=== PATIENT | female | born 2000 | race Caucasian/White ===

== ENCOUNTER 2022-12-10 14:20 | Outpatient (CLI) | payer OTHER ==
[2022-12-10 15:07] VITALS: BP 122/70
--- NOTE | 2022-12-10 15:07 | SLEEP CARE CONSULTATION ---
Information from patient questionnaire entered by Eda Chung. I have reviewed and concur with the information entered by Eda Chung. This document represents the service I personally performed and the decisions made by me, Neha Gutierrez ARNP. History of Present Illness Service Date and Time: 12/10/2022 1420 Reason for Visit: New patient Chief Complaint: reports: Unrefreshed sleep, Snoring, Observed pauses in breathing Date of Onset: MORE THAN SIX MONTHS Usual bedtime: 9-10PM Time it takes to fall asleep: 20-30MIN SOMETIMES ONE HR Snores at night: Yes (according to brother) Observed to quit breathing while asleep: Yes Number of times waking at night: 0-1 times a night Reasons for waking at night: reports: Gasping for air (once about 4-5 months ago), Other (unknown reasons). denies: Choking, Snoring Toss, Turn, or Twitch while sleeping: Yes Recalls having dreams: Yes (sometimes, does not dream all that much) Usually gets out of bed at: [id number] Feels refreshed in the morning: No Morning headache: No Sleepy or fatigued during the day: Yes (tirso in the morning) Ever fallen asleep while driving: No Takes day naps: No Dreams during day naps: No Prior sleep studies: No Additional HPI information: I had the pleasure of seeing MEGHNA DODSON today regarding the possibility of her having a sleep disorder. Her current complaints are observed pauses in sleep, snoring and unrefreshed sleep. She states that she has been told by roommates that she is stopping breathing in her sleep. Her brother tells her that she snores "a little bit". She states she does not wake up feeling rested usually. - Parasomnia Symptoms Ever been unable to move upon waking from sleep: No Walks in sleep: No Talks in sleep: Yes Ever acted out dreams in sleep: No Ever felt weak in the knees when startled or emotional: No Bothered by creepy, crawly, restless sensations in legs: No Problems with memory or concentration: No Subjective Initial [place] Sleepiness Scale score: 4 (12/10/22) Past Medical History Past Medical History: reports: Other (no significant medical history) Social History The patient's occupation is a AM. Patient is Single and lives in . Have you smoked in the past 12 months: No Alcohol use: No Caffeine use: Yes Caffeine amount and frequency: ONCE A DAY Family History Family history of sleep disordered breathing: Yes Family Hx Sleep Apnea: Father: Snoring, Sleep apnea - Treated Allergies and Home Medications Known drug allergies: No Drug allergies reviewed: Yes Home medication list reviewed: Yes (no daily medications; Aleve, prn) Review of Systems Weight gain over past 5 years: 10-15 Cardiovascular: denies: high blood pressure Gastrointestinal: denies: heartburn, difficulty swallowing Neurological: denies: headaches Psychiatric: denies: Attention Deficit Hyperactivity, anxiety, depression Ear/Nose/Throat: denies: tonsillectomy, wisdom teeth removed Endocrine: denies: thyroid disease Immunologic: reports: other (getting allergy tested this week) Physical Exam Vital signs obtained and entered by: EDA Talbert MA Blood Pressure: 122/70 (LEFT ARM) Cuff size: regular Heart Rate: 85 O2 Saturation: 96 Height: 5 ft 1 in Weight: 125 lb 6.4 oz Body Mass Index: 23.7 BMI Classification: Normal Neck circumference: 12.25 Mouth and throat: narrow oropharynx Soft palate: long Hard palate: normal Uvula: normal Uvula visualization: 50% Mallampati Class II Tongue: enlarged in size with teeth skelton on lateral edges Tonsils: small Neck: normal w/o lymphadenopathy or thyromegaly Heart: regular rate and rhythm Lungs: clear bilaterally Impression and Plan 1. Suspected Obstructive Sleep Apnea-Hypopnea Syndrome, as suggested by a history of irregular snoring, observed cessation of breath while asleep and unrefreshed sleep. Narrow oropharynx and obesity are common predisposing factors for obstructive sleep apnea-hypopnea syndrome. I recommend proceeding to polysomnography to confirm the diagnosis and to assess severity. If the patient has significant sleep disordered breathing, a manual CPAP titration study will also be performed to find the optimal treatment pressure. I informed the patient of what the sleep studies involve and after some discussion, obtained agreement to proceed. The pathophysiology of obstructive sleep apnea-hypopnea syndrome was discussed with the patient and health risks of cardiovascular and cerebrovascular disease if not treated. Risks of drowsy driving discussed in detail and patient advised to avoid long distance driving and to plant puller at the first sign of drowsiness. Patient agreed to plan. * Schedule polysomnography * Avoid long distance driving or driving when feeling sleepy. * Avoid alcohol, sedative and muscle relaxant around bedtime. * Attempt to lose weight. * Review instructions provided by trained office staff on how to prepare for the sleep study. * Return for follow-up after sleep study completed. Counseling Topics: Weight control Visit Type: In Office Time Spent with Patient (minutes): 30 Provider Statement: I spent 100% of the Face to Face Visit with the patient with greater than 50% spent counseling the patient and coordination of care.
== END 2022-12-10 14:21 | disposition home or self-care (01) ==
LOC: SC 14:20
PROVIDERS: ATTEND Nurse Practitioner Family
DX: R06.83 Snoring (principal); R06.81 Apnea, not elsewhere classified; G47.8 Other sleep disorders
CPT/HCPCS: 99203; 99212

== ENCOUNTER 2022-12-22 17:58 | Emergency (ER) | payer OTHER ==
--- NOTE | 2022-12-22 20:10 | ED Physician Documentation ---
History of Present Illness - Stated complaint Stated Complaint: CUT RT FINGER - Chief complaint Chief Complaint: Ext Problem - Additonal information Additional information: 22-year-old female presents emergency department for evaluation of acute right thumb laceration sustained when attempting to cut a watermelon using a dull knife. She is left-hand dominant. She has a 1.5 cm laceration on the ulnar side of the right thumb. Bleeding controlled with pressure. Reports up-to-date tetanus. Review of Systems Constitutional: reports: Reviewed and negative Cardiac: reports: Reviewed and negative Respiratory: reports: Reviewed and negative Skin: reports: Laceration (s) PD PAST MEDICAL HISTORY - Present Medications Home Medications: Ambulatory Orders Medication Instructions Recorded Confirmed Naproxen Sodium [Aleve] See Rx Instructions .ROUTE .COMPLEX 12/10/22 12/10/22 - Allergies Allergies/Adverse Reactions: Allergies Allergy/AdvReac Type Severity Reaction Status Date / Time No Known Drug Allergies Allergy Verified 12/10/22 14:35 PD ED PE EXPANDED - Extremities Extremities: Right finger(s) (1.5 cm laceration distal tip right thumb ulnar side. No active bleeding. No nailbed involvement. Neurovascular intact. Preserved flexion extension at DIP joint) Results - Vitals Vitals: Vital Signs - 24 hr 12/22/22 18:32 Temperature 36.5 C Heart Rate 66 Respiratory 18 Rate Blood Pressure 114/77 O2 Saturation 100 Oxygen O2 Source Room air Procedures - Laceration (location) Right thumb Length in cm: 1.5 Wound type: Linear, Into subcut fat Neurovascular status: Sensory intact, Motor intact Tendon involvement: Tendon intact Wound preparation: Chlorhexadine, Irrigated copiously NS Skin layer closure: Dermabond Other: Patient tolerated well, Tetanus UTD PD Medical Decision Making - ED course Complexity details: reviewed results, re-evaluated patient, considered differential, d/w patient ED course: 22-year-old female presents to the emergency department for evaluation of acute right thumb laceration sustained when cutting a watermelon. She is left-hand dominant. This was a simple laceration that did not involve the nailbed. Easily closed with Dermabond. Tetanus is up-to-date. The routine care and usual return precautions for concerns of infection were discussed. Departure - Departure Disposition: 01 Home, Self Care Clinical Impression: Laceration of right thumb Qualifiers: Encounter type: initial encounter Damage to nail status: without damage Foreign body presence: without foreign body Qualified Code(s): S61.011A - Laceration without foreign body of right thumb without damage to nail, initial encounter Condition: Stable Record reviewed to determine appropriate education?: Yes Instructions: ED Laceration Ext Skin Glue Comments: We closed the laceration on your right thumb Using Dermabond or glue. No special treatment is necessary for this. Avoid using antibiotic ointments as it will cause the glue to wear away. I would expect that this simply wears away over the next several days up to a week. Return to the ER if you have any concerns of infection, fevers, redness milky drainage or severe pain. [id number] Tylenol and ibuprofen should be sufficient for your pain.
[2022-12-22 20:14] VITALS: BP 123/86
== END 2022-12-22 20:14 | disposition home or self-care (01) ==
LOC: ED 17:58
DX: S61.011A Laceration without foreign body of right thumb without damage to nail, initial encounter (principal); W26.0XXA Contact with knife, initial encounter; Y93.G1 Activity, food preparation and clean up
CPT/HCPCS: 12001; 99281

== ENCOUNTER 2022-12-30 19:34 | Outpatient (CLI) | payer OTHER | END 2022-12-30 19:35 | disposition home or self-care (01) | LOC: SC 19:34 | PROVIDERS: ATTEND Nurse Practitioner Family | DX: R06.83 Snoring (principal); R53.83 Other fatigue; G47.8 Other sleep disorders | CPT/HCPCS: 95810 ==

== ENCOUNTER 2023-01-10 14:49 | Outpatient (CLI) | payer OTHER ==
[2023-01-10 15:08] VITALS: BP 114/76
--- NOTE | 2023-01-10 15:09 | SLEEP CARE CONSULTATION ---
Information from patient questionnaire entered by Eda Chung. I have reviewed and concur with the information entered by Eda Chung. This document represents the service I personally performed and the decisions made by , Neha Gutierrez ARNP. History of Present Illness Service Date and Time: 01/10/2023 144 Initial [place] Sleepiness Scale score: 4 (12/10/22) Current [place] Sleepiness Scale score: 10 (01/10/23) Additional HPI information: MEGHNA DODSON returns for follow up and results of the recently performed polysomnography. The patient was informed of the following findings: No significant sleep disordered breathing with an average AHI of 0.0 and noé oxygen saturation of 94%. I explained the pathophysiology behind obstructive sleep apnea. Patient does not have sleep apnea and was advised how weight gain could increase the risk of developing sleep apnea in the future. Patient has light snoring. Snoring can be reduced by weight loss. Weight loss is best achieved with diet consult. Patient instructed to contact PCP for referral. Snoring can also be treated with an oral appliance from a dentist. Advised to check insurance coverage. In addition, an ENT evaluation can be do to see if other treatment is indicated. Patient does not drink alcohol. Patient was cautioned about risks of drowsy driving until sleepiness symptoms resolve. Patient denies drowsy driving. Sleep Study - Results Type of Sleep Study: Polysomnography (COMPLETED 12/30/22) Prior sleep studies: No Polysomnography/Home Sleep Study results: IMPRESSION: The quality of the study is good. The patient had reduced sleep efficiency due to sleep onset insomnia and research environmental engineer awakening. The sleep architecture was relatively normal considering the first-night effect. Respiratory monitoring showed no significant sleep disordered breathing (AHI = 0.0) hypoxia (noé oxygen saturation of 94%). The slept mostly supine (supine AHI = 0.0; non-supine = 0.00). Snore was infrequent and light in intensity. There was no significant periodic leg movement of sleep. Cardiac rhythm was normal sinus rhythm without significant arrhythmia. No abnormal behavior (parasomnia) observed during the night. Allergies and Home Medications Known drug allergies: No Drug allergies reviewed: Yes Home medication list reviewed: Yes (fexofenadine allergy otc, prn) Allergy and home medication list: Allergies No Known Drug Allergies Allergy Review of Systems Review of systems same as previous: Yes (no changes) Physical Exam Vital signs obtained and entered by: EDA Talbert MA Blood Pressure: 114/76 (LEFT ARM) Cuff size: regular Heart Rate: 77 O2 Saturation: 99 Height: 5 ft Weight: 126 lb 9.6 oz Body Mass Index: 24.7 BMI Classification: Normal Impression and Plan Snoring but no significant sleep disordered breathing. Patient advised that often weight loss will reduce snoring as well as apnea risk. An oral appliance can also be used for snoring. This would require a dental consultation. Patient cautioned not to use other online appliances as can cause bite issues. A list of accredited dentists in [facility] and one local dentist who makes oral appliances is available in office as needed. Patient is advised to check if insurance will cover. An ENT consult can also be helpful to determine if any other treatment is an option. * Attempt to lose weight * Avoid alcohol consumption near bedtime * The patient is cautioned about driving until sleepiness is completely resolved. * Return as needed for follow up. Counseling Topics: Weight control Visit Type: In Office Time Spent with Patient (minutes): 10 Provider Statement: I spent 100% of the Face to Face Visit with the patient with greater than 50% spent counseling the patient and coordination of care.
== END 2023-01-10 14:50 | disposition home or self-care (01) ==
LOC: SC 14:49
PROVIDERS: ATTEND Nurse Practitioner Family
DX: R06.83 Snoring (principal)
CPT/HCPCS: 99212